=== PATIENT | female | born 1985 | race African-American/Black ===

== ENCOUNTER 2018-09-10 00:11 | Emergency (ER) | payer SELFPAY ==
[~2018-09-10] VITALS: Ht 180.3 cm; Wt 200.0 kg
[2018-09-10 01:09] LABS: CLARITY URINE CLOUDY (CLEAR); COLOR URINE YELLOW (YELLOW); KETONES URINE TRACE (NEGATIVE); LEUKOCYTE ESTERASE URINE TRACE (NEGATIVE); NITRITE URINE NEGATIVE (NEGATIVE); OCCULT BLOOD URINE 3+ (NEGATIVE); PH URINE 5.5 (4.5-8.0); PROTEIN URINE 1+ (NEGATIVE); SPECIFIC GRAVITY URINE 1.043 (1.005-1.030)
[2018-09-10] MEDS ORDERED: IBUPROFEN 600MG TABLET PO ONE (04:30)
[2018-09-10 04:53] LABS: BASOPHILS % 0.7 % (0.0-2.0); EOSINOPHILS % 1.8 % (0.0-5.0); HEMATOCRIT. 35.8 % (36.0-48.0); HEMOGLOBIN. 11.9 g/dL (12.0-16.0); LYMPHOCYTES % 27.7 % (20.0-50.0); MEAN CORPUSCULAR HEMOGLOBIN 28.9 pg (28.0-32.0); MEAN CORPUSCULAR VOLUME 86.7 fL (81.0-99.0); MONOCYTES % 8.4 % (2.0-8.0); NEUTROPHILS % 61.4 % (40.0-76.0); PLATELET 290 x1000/uL (130-400); RED BLOOD CELL COUNT 4.13 mill/uL (4.2-5.4); RED CELL DISTRIBUTION WIDTH 16.6 % (11.6-14.6)
[2018-09-10 04:59] LABS: CHLORIDE 109 mEq/L (98-107)
[2018-09-10 05:01] LABS: HCG SCREEN NEGATIVE; INR 0.9; PROTHROMBIN TIME 9.5 sec (9.1-11.1)
[2018-09-10 05:13] LABS: B-HCG QUANTITATIVE < 1 mIU/mL (<3)
[2018-09-10 08:30] VITALS: BP 119/68
== END 2018-09-10 08:38 | disposition home or self-care (01) ==
LOC: ER 00:11
DX: N93.9 Abnormal uterine and vaginal bleeding, unspecified (principal); J45.909 Unspecified asthma, uncomplicated; D25.9 Leiomyoma of uterus, unspecified; N70.11 Chronic salpingitis
CPT/HCPCS: 36415; 76830; 76856; 81025; 84702; 84703; 86850; 86900; 99284